=== PATIENT | female | born 1980 | race Caucasian/White ===

== ENCOUNTER 2016-04-04 11:00 | Emergency (ER) | payer OTHER ==
[2016-04-04 11:18] VITALS: BP 128/60; PULSE 73; RESP 18; TEMP 97.7
[2016-04-04] MEDS ORDERED: HYDROcodone/APAP 5-325MG 1 EACH TAB PO STA (11:42)
--- NOTE | 2016-04-04 11:47 | ED ---
General Adult HPI - General Chief complaint: Dental/Oral Stated complaint: DENTAL PAIN Time Seen by Provider: 04/04/16 11:26 Source: patient, RN notes reviewed Mode of arrival: ambulatory - History of Present Illness Initial comments: Patient 35-year-old female who presents emergency room today with a chief complaint of dental pain that started yesterday. Does admit to a fractured tooth of tooth #19. States that it occurred several months ago. States last night began having this pain. Denies any taste or drainage. Patient does note pain locally states tried ibuprofen with little relief the symptoms. Denies any other complaints or symptoms at this time. Patient denies any recent fever, chills, shortness of breath, chest pain, back pain, abdominal pain, nausea or vomiting, numbness or tingling, dysuria or hematuria, constipation or diarrhea, headaches or visual changes, or any other complaints. - Related Data Home Medications Medication Instructions Recorded Confirmed Citalopram Hydrobromide [CeleXA] 20 mg PO DAILY 04/04/16 04/04/16 Propranolol HCl [Inderal] 60 mg PO BID 04/04/16 04/04/16 buPROPion SR [Wellbutrin SR] 150 mg PO DAILY 04/04/16 04/04/16 Previous Rx's Medication Instructions Recorded Hydrocodone/Acetaminophen [[place] 1 each PO Q6HR PRN #10 tab 04/04/16 5-325] Penicillin V Potassium [Pen Vee K] 500 mg PO QID 10 Days 04/04/16 Allergies Allergy/AdvReac Type Severity Reaction Status Date / Time No Known Allergies Allergy Verified 04/04/16 11:18 Review of Systems ROS Statement: Those systems with pertinent positive or pertinent negative responses have been documented in the HPI. ROS Other: All systems not noted in ROS Statement are negative. Past Medical History Past Medical History: Hypertension Additional Past Medical History / Comment(s): chronic back pain History of Any Multi-Drug Resistant Organisms: None Reported Past Surgical History: Section Additional Past Surgical History / Comment(s): D&C, "cyst removed from her head " Past Psychological History: Bipolar, Depression Smoking Status: Never smoker Past Alcohol Use History: None Reported Past Drug Use History: None Reported General Exam - General Exam Comments Initial Comments: General: The patient is awake and alert, in no distress, and does not appear acutely ill. Eye: Pupils are equal, round and reactive to light, extra-ocular movements are intact. No nystagmus. There is normal conjunctiva bilaterally. No signs of icterus. Ears, nose, mouth and throat: There are moist mucous membranes and no oral lesions. Poor dental hygiene. Patient does have dental fracture Route tooth # 19. Locally tender over the gumline. Neck: The neck is supple, there is no tenderness or JVD. Cardiovascular: There is a regular rate and rhythm. No murmur, rub or gallop is appreciated. Respiratory: Lungs are clear to auscultation, respirations are non-labored, breath sounds are equal. No wheezes, stridor, rales, or rhonchi. Musculoskeletal: Normal ROM, no tenderness. Strength 5/5. Sensation intact. Pulses equal bilaterally 2+. Neurological: A&O x 3. CN II-XII intact, There are no obvious motor or sensory deficits. Coordination appears grossly intact. Speech is normal. Skin: Skin is warm and dry and no rashes or lesions are noted. Psychiatric: Cooperative, appropriate mood & affect, normal judgment. Course Vital Signs 04/04/16 11:15 Temperature 97.7 F Pulse Rate 73 Respiratory 18 Rate Blood Pressure 128/60 O2 Sat by Pulse 99 Oximetry Disposition Clinical Impression: Pain, dental Disposition: HOME SELF-CARE Condition: Good Instructions: Dental Abscess (ED) Additional Instructions: Please follow-up with the dentist as discussed. Please use antibiotic as prescribed and pain medication as needed. Please return to emergency room if any symptoms increase or worsen or for any other concerns. Prescriptions: Hydrocodone/Acetaminophen [[place] 5-325] 1 each PO Q6HR PRN #10 tab PRN Reason: Pain Penicillin V Potassium [Pen Vee K] 500 mg PO QID 10 Days Time of Disposition: 11:46
== END 2016-04-04 11:57 | disposition home or self-care (01) ==
LOC: EC 11:00
DX: K08.89 Other specified disorders of teeth and supporting structures (principal); I10 Essential (primary) hypertension; F32.9 Major depressive disorder, single episode, unspecified; Z79.899 Other long term (current) drug therapy
CPT/HCPCS: 99282

== ENCOUNTER 2018-03-11 16:29 | Emergency (ER) | payer OTHER ==
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
--- NOTE | 2018-03-11 18:02 | XR ---
EXAMINATION TYPE: XR knee complete RT DATE OF EXAM: 03/11/2018 COMPARISON: NONE HISTORY: Knee pain TECHNIQUE: 3 views FINDINGS: There is spurring of the femoral and tibial condyles. There is slight narrowing of the medi al joint space. There is minor spurring on the patella. There is no sign of joint effusion. I see no fracture nor dislocation. IMPRESSION: Mild hypertrophic osteoarthritis. No fracture.
[2018-03-11 18:55] VITALS: BP 128/79; PULSE 83; RESP 18; TEMP 97.4
[2018-03-11 19:34] LABS: Appearance,Urine Clear (Clear); Bacteria,Urine Occasional /hpf; Bilirubin,Urine Negative (Negative); Blood,Urine Large (Negative); Color,Urine Light Yellow; Glucose,Urine (UA) Negative (Negative); Ketones,Urine Negative (Negative); Leukocyte Esterase,Urine Negative (Negative); Mucus,Urine Rare /hpf; Nitrite,Urine Negative (Negative); PH, Urine 6.5 (5.0-8.0); Protein,Urine Negative (Negative); RBC,Urine 2 /hpf (0-5); Specific Gravity,Urine 1.005 (1.001-1.035); Squamous Epithelial Cell,Urine 1 /hpf (0-4); Urobilinogen,Urine <2.0 mg/dL (<2.0); WBC,Urine 2 /hpf (0-5)
[2018-03-11 19:41] LABS: Amphetamine Screen,Urine Detected (NotDetected); Barbiturate Screen,Urine Not Detected (NotDetected); Benzodiazepines Screen,Urine Detected (NotDetected); Cocaine Screen,Urine Detected (NotDetected); Methadone Screen, Urine Not Detected (NotDetected); Opiate Screen,Urine Detected (NotDetected); Oxycodone Screen, Urine Not Detected (NotDetected); Phencyclidine Screen,Urine Not Detected (NotDetected); Tricyclic Antidepressant,Urine Not Detected (NotDetected); Urn Cannabinoid Scrn Not Detected (NotDetected)
== END 2018-03-11 18:56 | disposition home or self-care (01) ==
LOC: EC 16:29
DX: S80.211A Abrasion, right knee, initial encounter (principal); I10 Essential (primary) hypertension; F31.9 Bipolar disorder, unspecified; Z79.899 Other long term (current) drug therapy; V09.20XA Pedestrian injured in traffic accident involving unspecified motor vehicles, initial encounter; Y93.01 Activity, walking, marching and hiking; Y92.488 Other paved roadways as the place of occurrence of the external cause
CPT/HCPCS: 36415; 81001; 81025; 80306; 73562; 99284; G0480; 80320